=== PATIENT | female | born 1990 | race Caucasian/White ===

== ENCOUNTER → 2019-03-01 | Outpatient (CLI) | payer OTHER ==
[~2019-03-01] MED LIST: AMPH10CA17 PO; AMPH20CA15 PO; DESO1TAB41 PO; ENOX60DI10 SQ; WARF-1 PO; mirena IUD
[2019-03-01 09:28] LABS: PLATELET COUNT, AUTOMATED 231 K/uL (150-450)
[2019-03-01 10:19] LABS: LDL CHOLESTEROL 97 mg/dl
== END ==
LOC: LAB 08:46
PROVIDERS: ATTEND Emergency Medicine
DX: F90.9 Attention-deficit hyperactivity disorder, unspecified type (principal); R79.89 Other specified abnormal findings of blood chemistry
CPT/HCPCS: 36415; 82040; 82247; 82310; 82374; 82435; 82465; 82565; 82607; 82947; 83718; 84075; 84132; 84155; 84295; 84439; 84443; 84450; 84460; 84478; 84481; 84520; 85025

== ENCOUNTER 2019-04-09 07:29 | Emergency (ER) | payer OTHER ==
[2019-04-09 07:32] VITALS: BP 132/81
--- NOTE | 2019-04-09 07:45 | ER Report ---
History and Physical Time Seen By MD: 07:39 Hx. 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 Allergies: Coded Allergies: No Known Drug Allergies (Unverified , 09/04/16) Home Meds Active Scripts Amphet Asp/Amphet/D-Amphet (ADDERALL XR 20 MG CAPSULE) 20 Mg Cap.er.24h, 20 MG PO DAILY, #30 TAB Prov:JOSE MARTIN TRUJILLO MD 03/01/19 Reported Medications [mirena IUD] No Conflict Check 09/21/18 Past Medical/Surgical History Noncontributory ptosis chief complaint Hx Smoking: No Smoking Status: Never Smoker Exposure to Second Hand Smoke?: No Hx Substance Use Disorder: No Constitutional Vital Sign - Last 24 Hours 04/09/19 07:32 Temp 98.4 Pulse 63 Resp 16 B/P (MAP) 132/81 Pulse Ox 95 O2 Delivery Room Air Physical Exam Examination of the patient's right hand reveals a small punctate nonbleeding abrasion versus superficial puncture to the dorsal aspect of the distal 4th finger, patient has normal range of motion, no other complaints Medical Decision Making ED Course/Re-evaluation ED Course 04/09/2019 7:41:03 am plan at this time will be to perform a body fluid ex posure panel I have also drawn an HIV on the source patient. We will hold prophylaxis pending the HIV testing on the source patient Decision to Disposition Date: Apr 09, 2019 Decision to Disposition Time: 07:41 Depart Departure Latest Vital Signs Vital Signs Date Time Temp Pulse Resp B/P (MAP) Pulse Ox O2 Delivery O2 Flow Rate FiO2 04/09/19 07:32 98.4 63 16 132/81 95 Room Air Impression: Primary Impression: Employee exposure to body fluids Condition: Stable Disposition: HOME OR SELF-CARE Referrals: JOSE MARTIN TRUJILLO MD (PCP) CHI HERNANDEZ MD Apr 09, 2019 07:45
== END 2019-04-09 07:49 | disposition home or self-care (01) ==
LOC: ER 07:43
DX: Z77.21 Contact with and (suspected) exposure to potentially hazardous body fluids (principal)
CPT/HCPCS: 99282